=== PATIENT | female | born 1960 | race Caucasian/White ===

== ENCOUNTER 2021-11-23 17:29 | Emergency (ER) | payer BC ==
[2021-11-23] MEDS ORDERED: TORAdol 30 mg Injection IV ONE (17:37)
[2021-11-23] MEDS ORDERED: Sodium Chloride 0.9% 1000 ML 1,000 ML IV STA (17:38)
[2021-11-23] MEDS ORDERED: Zofran 4 MG/2 ML VIAL IV ONE (17:39)
[2021-11-23] MEDS ORDERED: Sodium Chloride 0.9% 1000 ML 1,000 ML ONE (17:45)
[2021-11-23] MEDS ORDERED: TORAdol 30 mg Injection ONE (17:45)
[2021-11-23] MEDS ORDERED: Zofran 4 MG/2 ML VIAL ONE (17:45)
--- NOTE | 2021-11-23 18:32 | ERPHSYRPT ---
- History of Present Illness Historian: patient Exam Limitations: no limitations Patient Subjective Stated Complaint: Pt states "I am having left lower back and side pain as well as abdomen pain." Triage Nursing Assessment: Pt presented alert and oriented X 3, skin pwd. Pt ambulates with an upright slow gait. pt wincing and grunting. pt dry heaving and nauseated. Physician History: 61 yo WF w L flank pain x 3 days. Pain is sharp, does not radiate, and is 10 on scale. She has had N/V wo dysuria/hematuria/fever/melena/hematochezia/chest pain/dyspnea. She denies h/o kidney stones and has never had this pain before. Pt just returned from bus trip to [facility]. Timing/Duration: other (3 days) Activities at Onset: none Quality: sharpness Abdominal Pain Onset Location: flank (L flank) Pain Radiation: no radiation Severity of Pain-Max: severe Severity of Pain-Current: severe Modifying Factors: Worsens With: analgesics, antacids, breathing, coughing, defecating, eating, exercise, lying down, movement, palpation, rest, urinating, vomiting, position, walking Associated Symptoms: denies symptoms, back, nausea, vomiting Previous symptoms: no prior history Allergies/Adverse Reactions: No Known Drug Allergies Allergy (Verified 11/23/21 17:41) Home Medications: Esomeprazole Magnesium 40 mg PO DAILY 11/23/21 [History] Levothyroxine Sodium [Synthroid] 88 mcg PO DAILY 11/23/21 [History] Sertraline HCl 50 mg [Zoloft 50 mg Tablet] 50 mg PO DAILY 11/23/21 [History] Zolpidem Tartrate 10 mg [Ambien 10 MG] 10 mg PO HS 11/23/21 [History] Hx Tetanus, Diphtheria Vaccination/Date Given: No Hx Influenza Vaccination/Date Given: No Hx Pneumococcal Vaccination/Date Given: No Immunizations Up to Date: Yes Travel Risk - International Travel Have you traveled outside of the country in past 3 weeks: No - Coronavirus Screening Are you exhibiting any of the following symptoms?: No Close contact with a COVID-19 positive Pt in past 14-21 Days: No - Vaccine Status Have you recieved a Covid-19 vaccination: 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: [employer] - Vaccination Dates Date of 2cond Vaccination (if applicable): 2020 - Review of Systems Constitutional: No Symptoms, Chills Eyes: No Symptoms Ears, Nose, & Throat: No Symptoms Respiratory: No Symptoms Cardiac: No Symptoms Abdominal/Gastrointestinal: Nausea, Vomiting, No Abdominal Pain, No Diarrhea, No Constipation, No Hematemesis, No Hematochezia, No Melena, No Dysphagia, No Appetite Changes Genitourinary Symptoms: No Symptoms, Flank Pain, No Dysuria, No Frequency, No Hematuria, No Incontinence Musculoskeletal: No Symptoms Skin: No Symptoms Neurological: No Symptoms Psychological: No Symptoms Endocrine: No Symptoms Hematologic/Lymphatic: No Symptoms Immunological/Allergic: No Symptoms - Past Medical History Neurological History: No Pertinent History Cardiac History: Hypertension Respiratory History: No Pertinent History Endocrine Medical History: Hypothyroidism Musculoskeletal History: Arthritis - Past Surgical History Past Surgical History: Yes Other Surgical History: breast reduction. back. carpal tunnel bilat - Social History Smoking Status: Never smoker Exposure to second hand smoke: Yes Drug Use: none Patient Lives Alone: No Significant Family History: no pertinent family hx - Nursing Vital Signs Nursing Vital Signs: Initial Vital Signs Temperature 97.2 F 11/23/21 17:33 Pulse Rate 70 11/23/21 17:33 Respiratory Rate 22 11/23/21 17:33 Blood Pressure 174/105 11/23/21 17:33 O2 Sat by Pulse Oximetry 99 11/23/21 17:33 Pain Scale Pain Intensity 0 Hypertensive - Physical Exam General Appearance: no apparent distress (In pain) Eye Exam: PERRL/EOMI, eyes nml inspection Ears, Nose, Throat Exam: normal ENT inspection, TMs normal, pharynx normal, moist mucous membranes Neck Exam: normal inspection, non-tender, supple, full range of motion, No meningismus, No mass, No Brudzinski, No Kernig's Respiratory Exam: normal breath sounds, lungs clear, airway intact Cardiovascular Exam: regular rate/rhythm, normal heart sounds, normal peripheral pulses, capillary refill <2 sec, No murmur Gastrointestinal/Abdomen Exam: soft, normal bowel sounds, No tenderness, No distention Back Exam: normal inspection, normal range of motion, No CVA tenderness, No vertebral tenderness Extremity Exam: normal inspection, normal range of motion Neurologic Exam: alert, oriented x 3, cooperative, 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, normal mood/affect, nml cerebellar function Skin Exam: normal color, warm, dry Lymphatic Exam: No adenopathy SpO2 Interpretation: normal SpO2: 99 O2 Delivery: Room Air - Course Nursing assessment & vital signs reviewed: Yes - CT Exams Abdomen/Pelvis CT Interpretation: Tele-radiologist Report (0.2 cm mid L ureteral stone/Pelvic floor lesion) Ordered Tests: Active Orders 24 hr Category Date Time Status ABDOMEN AND PELVIS W/0 CONTRAS [CT] Stat Exams 11/23/21 18:17 Taken CULTURE,URINE Stat Lab 11/23/21 19:04 Received UA W/RFX CULTURE Stat Lab 11/23/21 19:04 Completed Medication Summary Discontinued Medications Generic Name Dose Route Start Last Admin Trade Name Freq PRN Reason Stop Dose Admin Hydrocodone Bitart/Acetaminophen 2 tab 11/23/21 19:06 11/23/21 19:22 Hydrocodone/Apap 5/325 Mg Tablet PO 11/23/21 19:07 2 tab SENT HOME W/ PATIENT ONE Administration Hydrocodone Bitart/Acetaminophen Confirm 11/23/21 19:16 Hydrocodone/Apap 5/325 Mg Tablet Administered 11/23/21 19:17 Dose 2 tab .ROUTE .STK-MED ONE Sodium Chloride 1,000 mls @ 999 mls/hr 11/23/21 17:38 11/23/21 18:54 Sodium Chloride 0.9% 1000 Ml IV 11/23/21 18:38 Infused .Q1H1M STA Infusion Sodium Chloride Confirm 11/23/21 17:45 Sodium Chloride 0.9% 1000 Ml Administered 11/23/21 17:46 Dose 1,000 mls @ ud .ROUTE .STK-MED ONE Ketorolac Tromethamine 15 mg 11/23/21 17:37 11/23/21 17:47 Ketorolac Tromethamine 30 Mg/Ml Inj IV 11/23/21 17:38 15 mg STAT ONE Administration Ketorolac Tromethamine Confirm 11/23/21 17:45 Ketorolac Tromethamine 30 Mg/Ml Inj Administered 11/23/21 17:46 Dose 30 mg .ROUTE .STK-MED ONE Ondansetron HCl 4 mg 11/23/21 17:39 11/23/21 17:47 Ondansetron Hcl 4 Mg/2 Ml Vial IV 11/23/21 17:40 4 mg STAT ONE Administration Ondansetron HCl Confirm 11/23/21 17:45 Ondansetron Hcl 4 Mg/2 Ml Vial Administered 11/23/21 17:46 Dose 4 mg .ROUTE .STK-MED ONE Lab/Rad Data: Laboratory Results 11/23/21 Range/Units 19:04 Urinalys Dipstick Clnc MAIN LAB Urine Color BEKAH (YELLOW) Urine Appearance SLIGHTLY CLOUDY (CLEAR) Urine pH 6.5 (5-6) Ur Specific [place] >=1.030 (1.005-1.025) POC Urine Protein Conf 30 (Negative) Urine Ketones SMALL-15 (NEGATIVE) Urine Nitrite NEGATIVE (NEGATIVE) Urine Bilirubin NEGATIVE (NEGATIVE) Urine Urobilinogen 0.2 (0-1) mg/dL Urine Leukocytes NEGATIVE (NEGATIVE) Urine WBC (Auto) 3-5 (0-5) /HPF Urine RBC (Auto) >101 (0-2) /HPF U Epithel Cells (Auto) NONE (FEW) /HPF Urine Bacteria (Auto) NONE (NEGATIVE) /HPF Urine RBC LARGE (0-5) Carlos Alberto/ul Urine Mucus (Auto) SLIGHT (NEGATIVE) /HPF Ur Culture Indicated? YES Urine Glucose NEGATIVE (NEGATIVE) mg/dL - Progress Progress Note: 11/23/21 18:33 Pt painfree after 15mg IV Toradol - Departure Departure Disposition: Home Clinical Impression: Ureterolithiasis Condition: Stable Critical Care Time: No Referrals: ALFREDO ROSENTHAL MD [Primary Care Provider] - Follow up/PCP as directed Instructions: Kidney Stones (DC), Flank Pain Additional Instructions: Strain all urine Pain meds as needed Return to ER for increasing pain or temperature greater than 100.5 Prescriptions: Hydrocodone/Acetaminophen [Hydrocodone-Acetamin 10-325 mg] 1 tablet PO Q4H PRN PRN #7 tablet MDD 4 tabs PRN Reason: Pain Nitrofurantoin Monohyd/M-Cryst [Macrobid 100 mg Capsule] 100 mg PO BID #10
[2021-11-23 18:59] VITALS: O2SAT 99
[2021-11-23] MEDS ORDERED: NORCO 5/325 MG PO ONE (19:06)
[2021-11-23 19:16] LABS: Mucus SLIGHT /HPF (NEGATIVE)
[2021-11-23] MEDS ORDERED: NORCO 5/325 MG ONE (19:16)
[2021-11-23 19:17] LABS: Appearance SLIGHTLY CLOUDY (CLEAR); Bilirubin NEGATIVE (NEGATIVE); Dipstick done @ ? MAIN LAB; Glucose NEGATIVE (NEGATIVE); Ketones SMALL-15 (NEGATIVE); Nitrite NEGATIVE (NEGATIVE); Ph 6.5 (5-6); Protein,Urine Dip 30 (Negative); RBC >101 /HPF (0-2); RBC LARGE Ery/ul (0-5); Specific Gravity >=1.030 (1.005-1.025); Urobilinogen 0.2 mg/dL (0-1)
[2021-11-23 19:18] LABS: Urine Cultured Indicated? YES
[2021-11-23 19:29] VITALS: BP 132/87; PULSE 72
--- NOTE | 2021-11-23 20:54 | XRAY ---
Indication: Left flank pain 3 days. Multiple contiguous axial images obtained through the abdomen and pelvis without contrast using renal stone protocol. Comparison: None Lung bases demonstrates mild dependent atelectasis. Heart not enlarged. 3 mm mid left ureter calculus, approximately L3 level. Minimal hydronephrosis consistent with partial obstructive uropathy a few additional left renal calculi, largest 6-7 mm. 1.5 cm left mid renal exophytic cyst. Noncontrasted stomach and bowel loops appear nonobstructed with normal appendix. No free fluid/air. Remaining liver, gallbladder, pancreas, spleen, adrenal glands, kidneys, ureters, bladder, uterus, and aorta appear unremarkable for noncontrast exam. Osseous structures intact with mild facet moderate degenerative changes throughout the thoracolumbar spine and mild dextroscoliosis centered at L2-L3. Impression: 1. 3 mm mid left ureter calculus producing partial obstruction. Additional left renal micro-calculi and small left renal cyst. 2. Chronic bony findings. Comment: Preliminary interpretation made by [facility]. No critical discrepancy.
== END 2021-11-23 19:35 | disposition home or self-care (01) ==
LOC: ED 17:29
DX: N13.2 Hydronephrosis with renal and ureteral calculous obstruction (principal); R10.9 Unspecified abdominal pain; R11.2 Nausea with vomiting, unspecified; I10 Essential (primary) hypertension; Z79.899 Other long term (current) drug therapy; Z79.891 Long term (current) use of opiate analgesic
CPT/HCPCS: 36000; 74176; 81015; 87086; 96360; 96374; 96375; 99284; J1885; J2405; A9270-GY

== ENCOUNTER 2022-06-26 08:56 | Day surgery (SDC) | payer BC ==
--- NOTE | 2022-06-25 12:00 | HP ---
DATE OF SURGERY: 06/26/2022 HISTORY OF PRESENT ILLNESS: The patient is a 62-year-old female who presents for endoscopy. The patient had colonoscopy three years ago and had some polyps. Patient reports uncle had colon cancer. The patient reports being on Nexium. She was offered EGD and declines EGD at this time. PAST MEDICAL HISTORY: Hypertension, thyroid disease, gastroesophageal reflux disease, arthritis. PAST SURGICAL HISTORY: Bilateral carpal tunnel release. Breast reduction. Back surgery. ALLERGIES: NKDA. MEDICATIONS: Sertraline, levothyroxine, losartan, Nexium. FAMILY HISTORY: Heart disease, dementia, colon cancer. SOCIAL HISTORY: Denies smoking. Occasional alcohol. REVIEW OF SYSTEMS: CONSTITUTIONAL: Denies fever or chills. CHEST: Denies shortness of breath. CVS: Denies chest pain. ABDOMEN: Denies abdominal pain. PHYSICAL EXAMINATION: GENERAL: No acute distress. CHEST: Nonlabored. No shortness of breath. CVS: Regular rate and rhythm. ABDOMEN: Soft. IMPRESSION: History of colon polyps, family history of colon cancer. PLAN: Colonoscopy with Dr. Ok Elizondo. As dictated by Nimco Brown NP.
[~2022-06-26 08:56] MED LIST: Lactated Ringers 1,000 ML IV SCH
[2022-06-26] MEDS ORDERED: Lactated Ringers 1,000 ML IV ONE (08:58)
[2022-06-26] MEDS ORDERED: DIPRIVAN 200 MG/20 ML IV ONE ×2 (10:52→10:53)
[2022-06-26 11:36] VITALS: PULSE 72
[2022-06-26 11:51] VITALS: BP 122/78; O2SAT 97
--- NOTE | 2022-06-26 12:02 | OP ---
SURGERY DATE/TIME: 06/26/2022 1040 PREOPERATIVE DIAGNOSIS: Previous history of polyps. POSTOPERATIVE DIAGNOSES: 1) Four polyps: One descending 1 cm, cecum 1 mm, mid sigmoid two - 1 cm polyps. 2) Moderate internal hemorrhoids, one large external hemorrhoid. 3) Prep score excellent. 4) Withdrawal time six minutes. 5) Follow up in three years. PROCEDURE: Colonoscopy complete to cecum with hot polypectomy x4 submitted in three jars. SURGEON: Ok Elizondo M.D. ANESTHESIA: MAC. COMPLICATIONS: None. CONDITION: Stable. INDICATION: The patient presented for follow up polyp disease. DESCRIPTION OF PROCEDURE: Taken to endoscopy. Left lateral decubitus position. Anal digital examination satisfactory. Scope introduced. Scope advanced to the cecum. Circumferential withdrawal. There is an external hemorrhoid that probably has been thrombosed and firmed up. It is singular. The patient has moderate internal hemorrhoids. Complete exam to the cecum with hot polypectomy with biopsy forceps x4 in three jars. As noted, two of these were in the sigmoid within a half inch of each other submitted in one jar. Only three jars were present. The patient tolerated the procedure satisfactorily. Follow up exam three years.
== END 2022-06-26 12:02 | disposition home or self-care (01) ==
LOC: SDC 08:56
PROVIDERS: ATTEND Surgery
DX: Z09 Encounter for follow-up examination after completed treatment for conditions other than malignant neoplasm (principal); Z86.010 Personal history of colon polyps; Z80.0 Family history of malignant neoplasm of digestive organs; K63.5 Polyp of colon; K64.4 Residual hemorrhoidal skin tags; K64.8 Other hemorrhoids
CPT/HCPCS: J2704